=== PATIENT | female | born 1970 | race Caucasian/White ===

== ENCOUNTER 2021-07-27 14:55 | Emergency (ER) | payer MEDICARE, SELFPAY ==
[2021-07-27 14:56] VITALS: BP 115/78; PULSE 79; RESP 18; TEMP 35.9; O2SAT 100; BMI 24.5
[2021-07-27 15:16] VITALS: BP 110/75; PULSE 78; RESP 14; O2SAT 98
--- NOTE | 2021-07-27 15:22 | EKG12_ITS ---
Test Reason : MEDICAL CLEARANCE Blood Pressure : / mmHG Vent. Rate : 070 BPM Atrial Rate : 070 BPM P-R Int : 158 ms QRS Dur : 078 ms QT Int : 418 ms P-R-T Axes : 038 036 047 degrees QTc Int : 451 ms Normal sinus rhythm Normal ECG Confirmed by MICHEL STANFORD, NIGHAT ([id number]), continuity editor NATALYA KELLEY ([id number]) on 07/28/2021 2:02:57 PM Referred By: Confirmed By:SANTIAGO PEARSON MD
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
--- NOTE | 2021-07-27 15:30 | NURSING ---
NO OLD EKGS
[2021-07-27 15:33] LABS: Absolute Lymphocyte Count 0.95 X10^3/uL (0.83-4.51); Absolute Neutrophil Count 4.1 X10^3/uL (2.0-7.7); Basophil# 0.05 X10^3/uL; Basophil% 0.9 % (0-1); Eosinophils% 3.5 % (0-5); Hematocrit 35.1 % (37-47); Lymphocyte # 0.95 X10^3/ul (0.83-4.51); Lymphocyte % 16.5 % (19-41); Mean Corp Hgb Conc 34.2 g/dL (32-36); Mean Corpuscular Hgb 32.6 pg (27.0-32.0); Mean Corpuscular Volume 95.4 fL (81-99); Mean Platelet Vol. 11.5 fl (6.2-12.0); Monocyte# 0.43 X10^3/uL; Monocyte% 7.5 % (0-10); NRBC Flagged by Analyzer 0 % (0-5); Neutrophil # 4.09 X10^3/uL (2.7-7.7); Neutrophil % 71.1 % (47-70); Platelet Count 155 K/mm3 (150-450); RBC Distribution Width CV 11.5 % (11.6-14.6); RBC Distribution Width SD 40.2 fl (35.1-43.9); Red Blood Count 3.68 M/mm3 (4.2-5.4); White Blood Count 5.8 K/mm3 (4.4-11.0)
[2021-07-27 15:49] LABS: ALB/GLOB Ratio 1.3 RATIO (0.9-2.4); AST(SGOT) 42 U/L (15-37); Alanine Aminotransfer ALT/SGPT 75 U/L (13-56); Albumin, Serum 3.8 g/dL (3.2-5.0); Alkaline Phosphatase 101 U/L (45-117); Anion Gap 3 (5-15); BUN 18 mg/dL (7-18); BUN/Creat Ratio 39.9 RATIO (10-20); Calcium,Total 8.6 mg/dL (8.5-10.1); Chloride 104 mmol/L (98-107); Creatinine, Serum 0.45 mg/dL (0.55-1.02); EST Glomerular Filtration Rate 156 mL/min (>60); Est Glom Filt Rate - Afr Amer 189 mL/min (>60); Estimated Creatinine Clearance 130.59 ml/min; Glucose 91 mg/dL (74-106); Protein, Total 6.8 g/dL (6.4-8.2); Sodium Level 138 mmol/L (136-145); Troponin-I HS < 3 pg/mL (3.0-54.0)
--- NOTE | 2021-07-27 15:55 | RAD_ITS ---
STUDY: X-RAY CHEST REASON FOR EXAM: Female, 50 years old. Chest pain TECHNIQUE: PA and lateral views of the chest. COMPARISON: None. FINDINGS: There are monitoring devices. The lungs are clear and expanded. There is no demonstrated pleural abnormality. Normal size heart. Normal mediastinum and rosa. Normal visualized pulmonary arteries. Normal visualized aortic arch and descending thoracic aorta. There is a dextroscoliosis of the thoracic spine. Normal visualized ribs, clavicles, and shoulders. There is no demonstrated abnormality of the visualized soft tissue structures of the upper abdomen. RAD/Chest PA and Lateral IMPRESSION: No focal infiltrate or edema. Scoliosis. Electronically Signed: Christopher Lake MD at 16:21 EST Reading Location ID and State: [facility] / [place] , Service support ,
[2021-07-27 16:40] VITALS: BP 110/78; PULSE 64; RESP 12; TEMP 37.2; O2SAT 99
== END 2021-07-27 16:41 | disposition home or self-care (01) ==
PROVIDERS: Emergency Provider Emergency Medicine; Visit Provider Emergency Medicine
DX: R07.9 Chest pain, unspecified (principal); R00.2 Palpitations; R06.02 Shortness of breath
CPT/HCPCS: 71046; 80053; 84484; 85025; 93005; 99284; A4216

== ENCOUNTER 2023-06-25 11:11 | Emergency (ER) | payer MEDICARE, MEDICAID, SELFPAY ==
[2023-06-25 11:12] VITALS: BP 106/80; PULSE 75; RESP 16; TEMP 36.1; O2SAT 100; BMI 22.8
--- NOTE | 2023-06-25 12:11 | EX.ED.DYSGE1 ---
HPI <PRINCESS Mccurdy - Last Filed: 06/25/23 14:16> History of Present Illness Chief Complaint: Mental Health Narrative Narrative: Patient is a 52-year-old female with according to family has history of schizophrenia, bipolar who is recently moved up here 2 years ago. Patient is brought into the emergency department by her aunt as well as her cousin. Per them, the patient is exhibiting odd behavior that is too much to take care of at home. The patient has auditory and visual hallucinations. The patient cannot be left alone at the house because the patient gets confused, continuously goes through doors and can be aggressive with family. The family provided letters for healthcare personnel to read, it seems that the patient was exhibiting this behavior in [place] and was then sent to live with family here in [place]. Patient has not seen a psychiatrist in multiple years, patient has been admitted to psychiatric facilities twice in her life but this was in [place] and multiple years ago. The family states they can no longer take care of her and is here for evaluation. PFS <PRINCESS Mccurdy - Last Filed: 06/25/23 14:16> [facility] Medical History (Updated 06/25/23 @ 14:16 by PRINCESS Mccurdy) Anemia Bipolar disorder Congenital heart anomaly Depression Schizophrenia Stomach ulcer Home Medications buspirone 10 mg tablet 10 mg PO TID 06/25/23 [History Last Taken Unknown] docusate sodium 100 mg capsule (Colace) 100 mg PO BID 06/25/23 [History Last Taken Unknown] omeprazole 40 mg capsule,delayed release 40 mg PO DAILY 06/25/23 [History Last Taken Unknown] sertraline 100 mg tablet (Zoloft) 100 mg PO DAILY 06/25/23 [History Last Taken Unknown] Allergy/AdvReac Type Severity Reaction Status Date / Time Unable to Assess Allergy Verified 06/25/23 11:14 Social History Smoking Status: Never smoker ROS <PRINCESS Mccurdy - Last Filed: 06/25/23 14:16> ROS ED ROS Narrative Constitutional: Negative for fever, chills, weight loss, weakness Eyes: Negative for vision loss, vision change, double vision ENT: Negative for any sore throat, ear pain, congestion Cardiovascular: Negative for any chest pain, tightness, palpitations Respiratory: Negative for any cough, sputum production, hemoptysis, dyspnea, dyspnea on exertion, orthopnea Gastrointestinal: Negative for any abdominal pain, vomiting, diarrhea, constipation, blood in stool, blood in vomit. Positive for nausea : Negative for any urinary frequency, dysuria, retention, blood in urine Muscle skeletal: Negative for any myalgias, arthralgias, neck pain, back pain Neurological: Negative for any headache, syncope, paresthesias, dizziness Skin: Negative for any rashes, lumps, itching, abrasions, lacerations Psychiatric: Negative for any depression, anxiety, stress, suicidal ideation, homicidal ideation Hematologic: Negative for any easy bruising, excessive bruising, easy bleeding Allergies: Negative for any eczema, hives, rash Patient is a poor informant EXAM <PRINCESS Mccurdy - Last Filed: 06/25/23 14:16> Physical Exam Narrative Exam Narrative: Vital signs reviewed. Patient was alert and oriented however is not a good informant. Patient does state things that are not appropriate. HEET: Head normocephalic atraumatic, TMs clear bilaterally. Posterior pharynx is clear, moist mucous membranes. Nares clear bilaterally. Neck: Supple with no lymphadenopathy or tenderness. No signs of meningismus. Cardiac: Regular rate and rhythm no murmurs gallops or rubs, equal peripheral pulses bilaterally. Respiratory: Lungs clear to auscultation bilaterally. No chest tenderness. Abdomen: Soft, nontender, nondistended. No abdominal bruit or pulsatile masses. No hepatosplenomegaly Extremities: No peripheral edema, no signs of gross trauma or deformity. Active full range of motion of all extremities. Neuro: Cranial nerves II through XII intact, no focal neurological deficits. Skin: Clean dry and intact with no rash, purpura, petechiae, vesicles or pustules. Backs/flank: No CVA tenderness, no midline spinal tenderness, no deformity. Psych: Normal mood and affect. No SI, HI or acute psychosis. Const Vital Signs: 06/25/23 11:12 Temperature 97.0 F L Temperature Source Temporal Pulse Rate 75 Respiratory Rate 16 Blood Pressure 106/80 Blood Pressure Mean 88 Pulse Ox 100 Oxygen Delivery Method Room Air Positive unkempt General Appearance ED: unkempt Psych Appearance: unkempt <Dr. Gigi Newby, DO - Last Filed: 06/25/23 14:48> Physical Exam Const Vital Signs: 06/25/23 11:12 Temperature 97.0 F L Temperature Source Temporal Pulse Rate 75 Respiratory Rate 16 Blood Pressure 106/80 Blood Pressure Mean 88 Pulse Ox 100 Oxygen Delivery Method Room Air MDM <Parrish Wallace REFERENCE ARCHIVIST-C - Last Filed: 06/25/23 14:16> [facility] Lab Data Labs: Laboratory Results - last 24 hr 06/25/23 06/25/23 12:28 12:35 WBC 4.0 L RBC 4.02 L Hgb 12.3 Hct 37.6 MCV 93.5 MCH 30.6 MCHC 32.7 RDW Std Deviation 39.5 RDW Coeff of [place] 11.7 Plt Count 146 L MPV 10.8 Immature Gran % (Auto) 0.300 Neut % (Auto) 73.1 H Lymph % (Auto) 17.2 L [place] % (Auto) 6.3 Eos % (Auto) 1.8 Baso % (Auto) 1.3 H Absolute Neuts (auto) 2.9 Absolute Lymphs (auto) 0.68 L Nucleated RBC % 0 Sodium 139 Potassium 4.3 Chloride 107 Carbon Dioxide 29.0 Anion Gap 3 L BUN 15 Creatinine 0.59 Estim Creat Clear Calc 97.41 Est GFR (MDRD) Af Amer 137 Est GFR (MDRD) Non-Af 113 BUN/Creatinine Ratio 25.3 H Glucose 109 H Calcium 10.0 Serum , Qual NEGATIVE Urine Opiates Screen NEGATIVE Urine Methadone Screen NEGATIVE Ur Barbiturates Screen NEGATIVE Ur Phencyclidine Scrn NEGATIVE Ur Amphetamines Screen NEGATIVE MDMA (Ecstasy) Screen NEGATIVE U Benzodiazepines Scrn NEGATIVE Urine Cocaine Screen NEGATIVE U Cannabinoids Screen NEGATIVE Ur Drug Screen Comment Ethyl Alcohol < 3.0 Treatment and Re-Evaluation :: Patient appears to be in no obvious respiratory distress, vital signs are stable. Presenting to the emergency department for mental health evaluation by her family. Differential diagnosis includes psychosis, schizophrenia, bipolar. After talking with the patient, there is some developmental delay, there is also some underlying psychiatric disease such as system for any of bipolar. I do believe the patient is unable to take care of herself, and I read multiple letters from the family, they are having difficulty taking care of her. I spoke with the social service liaison here in the emergency department. We are in agreement that the patient needs placed for further psychiatric care as well as medication regimen. Patient is not suicidal homicidal at this time, patient does have visual and auditory hallucinations. Patient is stable, mental health workup will be completed in the emergency department. I did read the letters written by the family members, I spoke with the social work here at the hospital in the ER, we are all in agreement that the patient does need placed for further psychiatric care. Patient will receive the laboratory values needed for transfer. Patient will be pink slipped. Patient's CBC was unremarkable patient's chemistries were unremarkable, urine drug screen was negative, alcohol was negative. At this time, patient will need placement. Musella slip was completed. Patient will be transferred to [facility], patient will be transported via ambulance. At this time, I do believe this is the correct course of action. Family is happy with the plan of care, patient is agreeable. <Dr. Gigi Newby, DO - Last Filed: 06/25/23 14:48> [facility] Narrative Medical decision making narrative: I have personally performed a face to face assessment of the patient and have reviewed the DERRICK Note. I performed a substantive portion of the visit including all aspects of the following. My bell findings include: History: Patient presents with abnormal behavior that has been getting worse over the past few days. Patient has been having some racing thoughts per family. Patient states she feels like her heart is racing. Patient admits to some nausea and vomiting. Patient admits to some abdominal pain. Family states that the patient is having difficulty caring for herself. Exam: Vital signs are stable. Patient is afebrile. Patient is in no acute distress. Oral mucosa is pink and moist. Neck is supple. Trachea is midline. There is no JVD. Heart was regular rate and rhythm. Lungs are clear and equal bilateral. Abdomen is soft. Bowel sounds are normal. There is no tenderness. Cranial nerves II through XII are intact. There are no focal motor or sensory deficits noted. Patient denies any suicidal or homicidal ideations. Patient does have a flat affect and appears to be somewhat withdrawn. Medical Decision Making: Medical screening labs will be obtained. CBC will be obtained to assess for leukocytosis and anemia. Basic metabolic profile will be obtained to assess for electrolyte abnormality and renal function. Urine tox screen will be obtained to assess for substance abuse. Serum alcohol level will be obtained to assess for alcohol intoxication. Serum hCG will be obtained to assess for . CBC was reviewed and was within normal limits. Basic metabolic profile was reviewed and was essentially within normal limits. Urine tox screen was reviewed and was negative. Serum alcohol level was reviewed and was less than 3.0. Serum hCG was reviewed and was negative. Patient is medically cleared for evaluation by social service liaison for mental health. Patient will need to be placed in a psychiatric facility. Patient was accepted by [facility]. Patient will be transferred there. Patient understood and was agreeable with the plan. All questions were answered. Lab Data Labs: Laboratory Results - last 24 hr 06/25/23 06/25/23 12:28 12:35 WBC 4.0 L RBC 4.02 L Hgb 12.3 Hct 37.6 MCV 93.5 MCH 30.6 MCHC 32.7 RDW Std Deviation 39.5 RDW Coeff of [place] 11.7 Plt Count 146 L MPV 10.8 Immature Gran % (Auto) 0.300 Neut % (Auto) 73.1 H Lymph % (Auto) 17.2 L [place] % (Auto) 6.3 Eos % (Auto) 1.8 Baso % (Auto) 1.3 H Absolute Neuts (auto) 2.9 Absolute Lymphs (auto) 0.68 L Nucleated RBC % 0 Sodium 139 Potassium 4.3 Chloride 107 Carbon Dioxide 29.0 Anion Gap 3 L BUN 15 Creatinine 0.59 Estim Creat Clear Calc 97.41 Est GFR (MDRD) Af Amer 137 Est GFR (MDRD) Non-Af 113 BUN/Creatinine Ratio 25.3 H Glucose 109 H Calcium 10.0 Serum , Qual NEGATIVE Urine Opiates Screen NEGATIVE Urine Methadone Screen NEGATIVE Ur Barbiturates Screen NEGATIVE Ur Phencyclidine Scrn NEGATIVE Ur Amphetamines Screen NEGATIVE MDMA (Ecstasy) Screen NEGATIVE U Benzodiazepines Scrn NEGATIVE Urine Cocaine Screen NEGATIVE U Cannabinoids Screen NEGATIVE Ur Drug Screen Comment Ethyl Alcohol < 3.0 Discharge Plan Triage Chief Complaint: Mental Health ED Midlevel Provider: Parrish Wallace ED Provider: Gigi Newby Dx/Rx/DC Orders Clinical Impression: Schizophrenia, Auditory hallucination Prescriptions: No Action sertraline [Zoloft] 100 mg tablet 100 mg PO DAILY omeprazole 40 mg capsule,delayed release(DR/EC) 40 mg PO DAILY buspirone 10 mg tablet 10 mg PO TID docusate sodium [Colace] 100 mg capsule 100 mg PO BID Primary Care Provider: Tamara Hayward Referrals: Care Physician,No Primary [Non-Staff] - Disposition Disposition: Psychiatric Hospital or Unit Discharge Location: [facility]
[2023-06-25 12:44] LABS: Absolute Lymphocyte Count 0.68 X10^3/uL (0.83-4.51); Absolute Neutrophil Count 2.9 X10^3/uL (2.0-7.7); Basophil# 0.05 X10^3/uL; Basophil% 1.3 % (0-1); Eosinophil# 0.07 X10^3/uL; Eosinophils% 1.8 % (0-5); Hematocrit 37.6 % (37-47); Hemoglobin 12.3 g/dL (12.0-15.0); Lymphocyte # 0.68 X10^3/ul (0.83-4.51); Lymphocyte % 17.2 % (19-41); Mean Corp Hgb Conc 32.7 g/dL (32-36); Mean Corpuscular Hgb 30.6 pg (27.0-32.0); Mean Corpuscular Volume 93.5 fL (81-99); Mean Platelet Vol. 10.8 fl (6.2-12.0); Monocyte# 0.25 X10^3/uL; Monocyte% 6.3 % (0-10); NRBC Flagged by Analyzer 0 % (0-5); Neutrophil % 73.1 % (47-70); Platelet Count 146 K/mm3 (150-450); RBC Distribution Width CV 11.7 % (11.6-14.6); RBC Distribution Width SD 39.5 fl (35.1-43.9); Red Blood Count 4.02 M/mm3 (4.2-5.4)
[2023-06-25 12:52] LABS: Amphetamine Urine VISTA NEGATIVE (<1000 ng/mL); Barbiturate Urine VISTA NEGATIVE (< 200 ng/mL); Benzodiazepine Urine VISTA NEGATIVE (< 200 ng/mL); Cocaine Urine VISTA NEGATIVE (< 300 ng/mL); Ecstacy Urine VISTA NEGATIVE (< 500 ng/mL); Methadone Urine VISTA NEGATIVE (< 300 ng/mL); PCP Urine VISTA NEGATIVE (< 25 ng/mL); THC Urine VISTA NEGATIVE (< 50 ng/mL); Vista UDS pH Range 6
[2023-06-25 12:54] LABS: Anion Gap 3 (5-15); BUN 15 mg/dL (7-18); BUN/Creat Ratio 25.3 RATIO (10-20); Chloride 107 mmol/L (98-107); Creatinine, Serum 0.59 mg/dL (0.55-1.02); EST Glomerular Filtration Rate 113 mL/min (>60); Est Glom Filt Rate - Afr Amer 137 mL/min (>60); Estimated Creatinine Clearance 97.41 ml/min; Glucose 109 mg/dL (74-106); Potassium 4.3 mmol/L (3.5-5.1); Sodium Level 139 mmol/L (136-145)
--- OUTSIDE RECORDS SUMMARY | 2023-06-25 12:54 | XMS RPT_ITS | CCD ---
Author Name Unknown Address [address] [place] [id number] Organization [facility] Care Team Providers Care Last Model Maker Name Role Phone Pcp, No Primary Care Provider UnavailByron Saravia MD Primary Care Provider Byron Hayward MD Primary Care Provider Byron Hayward MD Primary Care Provider HOLLY LABOY Attending Unavailable BYRON HAYWARD Primary Care Unavailable HOLLY LABOY Referring Unavailable SHEILA RAMEY Attending Unavailable BYRON HAYWARD Primary Care Unavailable HOLLY LABOY Referring Unavailable NATALYA DESAI Attending Unavailable BYRON HAYWARD Primary Care Unavailable JESUS LABOYI Referring Unavailable BYRON HAYWADR Primary Care Unavailable HOLLY LABOY Referring Unavailable BYRON HAYWARD Primary Care Unavailable Medications Current Medications Medication Drug Class(es) Dates Sig (Normalized) Sig (Original) polyethylene glycol 3350 [id number] mg / potassium chloride 2970 mg / sodium bicarbonate 6740 mg / sodium chloride 5860 mg / sodium sulfate 53129 mg powder for oral solution (1 source) Osmotic Laxative Start: 01-05-2022 End: 01-05-2022 peg 3350-Electrolytes (GOLYTELY) 236-22.74-6.74 -5.86 gram suspension Indications: Gastroesophageal reflux disease, unspecified whether esophagitis present Take 4,000 mL by mouth one time only for 1 dose. Refer to printed prep instructions from your provider. 4000 mL 0 01/05/2022 01/05/2022 Active Completed/Discontinued Medications Medication Drug Class(es) Dates Sig (Normalized) Sig (Original) busPIRone hydrochloride 10 mg oral tablet (14 sources) Start: 12-12-2021 take 1 tablet by mouth three times daily busPIRone (BUSPAR) 10 mg tablet Take 1 tablet by mouth three times daily. 90 tablet 5 12/12/2021 Active Problems Active Problems Problem Classification Problem Date Documented Da te Episodic/Chronic Cardiac and circulatory congenital anomalies (13 sources) Congenital heart disease; Translations: [Congenital malformation of heart, unspecified] Onset: 2 09-19-2021 Chronic Deficiency and other anemia (12 sources) Pancytopenia; Translations: [Other pancytopenia] Onset: 2 09-19-2021 Chronic Deficiency and other anemia (1 source) Iron deficiency anemia; Translations: [Iron deficiency anemia, unspecified] Episodic Esophageal disorders (16 sources) Gastroesophageal reflux disease without esophagitis; Translations: [Gastro-esophageal reflux disease without esophagitis] Onset: 2 09-19-2021 Chronic Immunizations and screening for infectious disease (2 sources) Encounter for immunization; Translations: [Encounter for immunization] Onset: 3 Episodic Mood disorders (20 sources) Depressive disorder; Translations: [Depression] Onset: 2 09-19-2021 Chronic Mood disorders (1 source) Mood disorders; Translations: [Depression, unspecified depression type] Onset: 2 Other aftercare (5 sources) Patient encounter status; Translations: [Other equipment operator intermodal yard (current) drug therapy] Episodic Other congenital anomalies (1 source) Congenital malformation, unspecified; Translations: [Congenital malformation, unspecified] Onset: 3 Chronic Other gastrointestinal disorders (1 source) Dysphagia, unspecified; Translations: [Dysphagia, unspecified type] Onset: 4 Episodic Other gastrointestinal disorders (1 source) Constipation, unspecified; Translations: [Constipation, unspecified constipation type] Onset: 4 Episodic Other non-traumatic joint disorders (1 source) Pain in right knee; Translations: [Pain in joint, lower leg] Episodic Other screening for suspected conditions (not mental disorders or infectious disease) (4 sources) Encounter for screening for diabetes mellitus; Translations: [Abnormal finding of blood chemistry, unspecified] Onset: 3 Episodic Schizophrenia and other psychotic disorders (14 sources) Schizophrenia; Translations: [Schizophrenia, unspecified] Onset: 2 09-19-2021 Chronic Past or Other Problems Problem Classification Problem Date Documented Da te Episodic/Chronic Other skin disorders (12 sources) Eruption; Translations: [Rash and other nonspecific skin eruption] Onset: 09-15-2021 09-19-2021 Episodic Viral infection (13 sources) Varicella; Translations: [Varicella without complication] Onset: 09-17-2021 09-19-2021 Episodic Results Test Name Value Interpretation Reference Range Facil ity Vital Signs Date Time Vital Sign Value Performing Clinician Joel castro 01-05-2022 14:02-0400 Body height 162.6 cm Nitesh Rush MD Work Phone: [facility] 01-05-2022 14:02-0400 Body temperature 97.9 [degF] Nitesh Rush MD Work Phone: [facility] 01-05-2022 14:02-0400 Body weight 61.69 kg Nitesh Rush MD Work Phone: [facility] 01-05-2022 14:02-0400 Diastolic blood pressure 67 mm[Hg] Nitesh Rush MD Work Phone: [facility] 01-05-2022 14:02-0400 Heart rate 85 /min Nitesh Rush MD Work Phone: [facility] 01-05-2022 14:02-0400 SaO2% (BldA) [Mass fraction] 98 % Nitesh Rush MD Work Phone: [facility] 01-05-2022 14:02-0400 Systolic blood pressure 102 mm[Hg] Nitesh Rush MD Work Phone: [facility] 12-12-2021 15:12-0400 Body weight 61.24 kg Holly Laboy TEMPORARY ADMINISTRATIVE ASSISTANT.SMALL EQUIPMENT OPERATOR Work Phone: [facility] 12-12-2021 15:12-0400 Diastolic blood pressure 68 mm[Hg] Holly Laboy TEMPORARY ADMINISTRATIVE ASSISTANT.SMALL EQUIPMENT OPERATOR Work Phone: [facility] 12-12-2021 15:12-0400 Heart rate 66 /min Holly Laboy TEMPORARY ADMINISTRATIVE ASSISTANT.SMALL EQUIPMENT OPERATOR Work Phone: [facility] 12-12-2021 15:12-0400 Respiratory rate 16 /min [facility] TEMPORARY ADMINISTRATIVE ASSISTANT.SMALL EQUIPMENT OPERATOR Work Phone: [facility] 12-12-2021 15:12-0400 SaO2% (BldA) [Mass fraction] 99 % Holly Laboy TEMPORARY ADMINISTRATIVE ASSISTANT.SMALL EQUIPMENT OPERATOR Work Phone: [facility] 12-12-2021 15:12-0400 Systolic blood pressure 110 mm[Hg] Holly Aguirres TEMPORARY ADMINISTRATIVE ASSISTANT.SMALL EQUIPMENT OPERATOR Work Phone: [facility] 09-27-2021 14:44-0400 Body weight 62.14 kg Byron Hayward MD Work Phone: [facility] 09-27-2021 14:44-0400 Diastolic blood pressure 78 mm[Hg] Byron Hayward MD Work Phone: [facility] 09-27-2021 14:44-0400 Heart rate 78 /min Byron Hayward MD Work Phone: [facility] 09-27-2021 14:44-0400 Systolic blood pressure 116 mm[Hg] Byron Hayward MD Work Phone: [facility] Encounters Encounter Date Encounter Type Care Provider Facility Start: 06-15-2023 End: 06-15-2023 [facility] Facility:[facility] Start: 06-12-2023 End: 06-13-2023 [facility] Facility:[facility] Start: 05-04-2023 End: 05-04-2023 ambulatory [facility] Facility:[facility] Start: 04-27-2023 End: 04-28-2023 ambulatory [facility] Facility:[facility] Start: 04-27-2023 End: 04-27-2023 ambulatory [facility] Facility:[facility] Start: 11-08-2022 ambulatory Byron quinn MD Work Phone: [facility] [place] Start: 01-19-2022 Telephone encounter Byron daley MD Work Phone: [facility] [place] Plan of Treatment Date Care Activity Detail Author Start: 12-12-2026 LIPID SCREEN LIPID SCREEN [facility] Start: 12-12-2024 DIABETES SCREEN DIABETES SCREEN [facility] Start: 09-19-2024 DIABETES SCREEN DIABETES SCREEN [facility] Start: 01-26-2023 Influenza vaccination INFLUENZ A (Season Ended) [facility] Start: 01-26-2022 Influenza vaccination [facility] Start: 12-12-2021 End: 02-11-2022 Lipid 1996 panel - Serum or Plasma [facility] Work Phone: Payers Date Payer Category Payer Private Health Insurance [employer]i ESCOTOA MEDICARE SUPPLEMENT [id number] 2021-Present [phone] [address] [place] [address] Indemnity [id number] 2021 Private Health Insurance [employer]SE ESCOTOA MEDICARE SUPPLEMENT [id number] 2021-Present [phone] [address] [place] [address] Indemnity [id number] 2017 Medicaid MEDICAID [facility] MEDICAID [id number] 2017-Present [phone] [address] [place] [address] Medicaid [id number] 2017 Medicaid [id number] 1991 Medicare MEDICARE MEDICAR E A AND B [id number] 1991-Present [phone] [place] [address] Medicare [id number] 1991 Medicare MEDICARE MEDICAR E A AND B [id number] 1991-Present [phone] [place] [address] Medicare [id number] 1991 Medicare [id number] Social History Date Type Detail Facility Start: [facility]27-[facility]21 [facility] Start: 07-27-2021 Tobacco use and exposure Smokeless tobacco non-user [facility] Start: 1970 Sex Assigned At Not on file [facility] Start: 09-10-2021 End: 09-20-2021 Exposure to SARS-CoV-2 (event) Unable to assess [facility] Work Phone: Start: 1970 Sex Assigned At Female [facility] Start: 09-17-2021 End: 01-05-2022 Exposure to SARS-CoV-2 (event) Not sure [facility] Start: 10-27-2021 End: 01-05-2022 Alcohol intake Lifetime non-drinker (finding) [facility] Start: 10-27-2021 History SDOH Alcohol Frequency 1 [facility] Clinical Notes 09-17-2021 to 06-15-2023 Telephone Encounter - Holly Laboy APRN.CNS - 01/20/2022 12:18 PM EDTTelephone Encounter - GERRY Sexton - 01/20/2022 8:28 AM Harriett Rush MD - 01/05/2022 5:02 PM EDT Note Date & Type Note Facility 06-15-2023 Note HNO ID: [id number] Author: SHEILA RAMEY APRN.FIELD SERVICES ANALYST Service: ? Author Type: Nurse Practitioner Type: Progress Notes Filed: 06/15/2023 15:25 Note Text: Button Maker And Installer offered: Patient declines. Mony Li MA present for exam Becky is a 52 year old No obstetric history on file. who presents for an annual gynecologic exam without complaints. Postmenopausal: Yes since age 51 HRT use: No. Last Pap: normal HPV: N/A History of abnormal pap: No Last mammogram: never History of abnormal mammogram: No Sexually active: Yes OB History No obstetric history on file. Machine Heel Sprayer History LMP: Postmenopausal Age at Menarche: Age at First : Age at Menopause: Machine Heel Sprayer History Comments: Sexual Activity: Never; No partner data on record Contraception: No contraception data on record PAST MEDICAL HISTORY Diagnosis Date Bipolar disorder (HCC) Chicken pox Congestive heart disease (HCC) Developmental delay Dysphagia GERD (gastroesophageal reflux disease) Major depressive disorder Pancytopenia (HCC) Schizophrenia (HCC) Varicella w/o complication PAST SURGICAL HISTORY Procedure Laterality Date IANDD ABSC SMPL OR SGL NONE FAMILY HISTORY Problem Relation Age of Onset Developmental Delay Mother SOCIAL HISTORY Social History Tobacco Use Smoking status: Never Smokeless tobacco: Never Vaping Use Vaping Use: Never used Substance Use Topics Alcohol use: Never Drug use: Never REVIEW OF SYSTEMS Abdomen: No abdominal pain, nausea, vomiting, diarrhea, or constipation. No bloating, early satiety, indigestion, or increased flatulence. Bladder: No dysuria, gross hematuria, urinary frequency, urinary urgency, or incontinence Breast: No breast lumps, nipple d/c, overlying skin changes, redness or skin retraction Allergies and current medication updated:Yes EXAM: There were no vitals taken for this visit. GENERAL: pleasant, female in no apparent distress HEENT: Normocephalic, atraumatic, mucus membranes moist, and no lesions NECK: Supple, full range of motion, no adenopathy, and thyroid normal DERMATOLOGY: Normal, without lesions, non-icteric, and non-hirsute BREAST: soft, non-tender, symmetric, no dominant mass, normal nipple-areolar complex, no lymphadenopathy, and no nipple discharge CHEST: Normal inspiratory effort ABDOMEN: soft, non-tender, and no masses PELVIC: external genitalia normal, normal Bartholin's glands, urethra, Mesilla's glands, no vulvar lesions, no cervical lesions, good vaginal support, physiologic discharge present, normal appearing perineal body and perianal region BIMANUAL: uterus normal size, shape and consistency, no adnexal masses, and non-tender RECTOVAGINAL: deferred. NEURO: alert and oriented x3,exam grossly non-focal EXTREMITIES: normal ASSESSMENT/PLAN: 1) Health maintenance: Pap done with reflex HPV Nutrition, exercise and routine health maintenance exams reviewed. Calcium/Vitamin D supplementation information provided. 2) Follow up one year or sooner as needed Pt refused mammogram Sheila Ramey APRN.[facility] 06-12-2023 Note HNO ID: [id number] Author: NATALYA DESAI PA-C Service: ? Author Type: Physician Renewable Energy Consultant Type: Progress Notes Filed: 06/18/2023 14:09 Note Text: HISTORY AND PHYSICAL Becky Regalado 1970 REFERRING PHYSICIAN: Holly Laboy APRN.SMALL EQUIPMENT OPERATOR CHIEF COMPLAINT: Consult (Screening for colon cancer/ dysphagia) HPI: The patient is a 52 year old female referred for endoscopy. Becky notes no colon complaints currently, although referral does mention some episodes of constipation. Patient denies any change in bowel habits, weight changes, blood in stools, black tarry stools or abdominal pain. Denies family history of colon issues. The patient reports issues of choking and stomach pain, coughing and occasional episodes of emesis. Becky has not undergone prior endoscopy. Was seen previously by Dr. Rush to discuss endoscopy for similar symptoms at that time, but did not have procedures completed. Patient's medical history is significant for schizophrenia, bipolar disorder. Patient denies chest pain or shortness of breath. Denies problems with sedation in the past. PAST MEDICAL HISTORY Diagnosis Date Bipolar disorder (HCC) Chicken pox Congestive heart disease (HCC) Developmental delay Dysphagia GERD (gastroesophageal reflux disease) Major depressive disorder Pancytopenia (HCC) Schizophrenia (HCC) Varicella w/o complication PAST SURGICAL HISTORY Procedure Laterality Date IANDD ABSC SMPL OR SGL NONE Current Outpatient Medications Medication Sig busPIRone (BUSPAR) 10 mg tablet Take 1 tablet by mouth three times a day. omeprazole (PRILOSEC) 40 mg capsule Take 1 capsule by mouth once daily. naproxen (NAPROSYN) 500 mg tablet Take 1 tablet by mouth at bedtime as needed for pain (for pain/inflammation). Take with food. sertraline (ZOLOFT) 25 mg tablet Take one daily for two weeks, then two daily for two weeks. Then take 100 mg daily docusate sodium (COLACE) 100 mg capsule Take 1 capsule by mouth two times a day as needed for constipation. sertraline (ZOLOFT) 100 mg tablet Take 1 tablet by mouth once daily. valACYclovir (VALTREX) 1 gram Take 1,000 mg by mouth three times daily. melatonin 5 mg tablet Take 1 tablet by mouth daily at bedtime. ferrous sulfate 325 mg (65 mg iron) tablet Take 1 tablet by mouth every other day. diphenhydrAMINE (BENADRYL) 50 mg capsule Take 1 capsule by mouth every 6 hours as needed for itching/rash. No current facility-administered medications for this visit. ALLERGIES: Patient has no known allergies. PERSONAL HISTORY: Social History Tobacco Use Smoking status: Never Smokeless tobacco: Never Vaping Use Vaping Use: Never used Substance Use Topics Alcohol use: Never Drug use: Never FAMILY HISTORY: FAMILY HISTORY Problem Relation Age of Onset Developmental Delay Mother REVIEW OF SYMPTOMS: The review of systems data was entered by the nurse and reviewed by me Nursing Notes: Maggie Munoz LPN 06/12/2023 3:53 PM Signed REVIEW OF SYSTEMS: General: The patient denies fatigue, denies weight loss, denies weight gain, denies feeling hot, and denies feelings of cold. Eyes: The patient denies glaucoma, denies eye injury/surgery, wears glasses or contacts. Ear/Nose/Throat: The patient denies allergies, denies hayfever, denies ear infections, and denies bloody noses. Cardiovascular: The patient denies chest pain, NOTES heart disease, denies high blood pressure,denies cardiac stent, denies prior heart attack, denies irregular heart beat, denies high cholesterol, denies poor circulation, denies heart failure, other cardiac issues, denies claudication, denies cold feet, denies peripheral arterial stent. Respiratory: The patient denies tuberculosis, denies pneumonia, denies frequent cough, denies pulmonary embolism, denies shortness of breath, and denies coughing up blood. Gastrointestinal: The patient denies difficulty swallowing, NOTES acid reflux, denies ulcers, denies vomiting, denies jaundice/hepatitis, denies gallbladder problems, denies black or tarry stools, denies hemorrhoids, denies bleeding from rectum, denies diverticulitis, NOTES constipation, denies diarrhea, denies loss of stool control, and denies hernias. Kidney/Bladder: The patient denies kidney stones, denies urine infections, and denies bloody urine. Skin: The patient denies a history of skin cancer, denies bleeding/changing moles, and denies a history of skin rash. Neurologic: The patient denies a history of epilepsy/convulsions, denies headaches, denies head/spinal injuries, and denies stroke/TIA. Psychiatric: The patient NOTES psychiatric medications, NOTES depression, and NOTES voices, denies substance abuse. Endocrine: The patient denies thyroid disorders, denies diabetes, and denies hormonal problems. Hematologic: The patient denies a history of bruising, denies bleeding, and denies anemia, denies blood clots. Infections: The abhijit (more content not included)... [facility] 04-27-2023 Note HNO ID: [id number] Author: Holly Laboy APRN.SMALL EQUIPMENT OPERATOR Service: ? Author Type: Nurse Specialist Type: Progress Notes Filed: 04/27/2023 4:09 PM Note Text: SUBJECTIVE: Hepatitis B Vaccine(1 of 3 - 3-dose series) Never done Covid-19 Vaccine(1) Never done DTaP,Tdap,Td Vaccine(1 - Tdap) Never done Pap Testing Never done HPV Testing Never done Mammogram Screening Never done Colorectal Cancer Screening Never done Shingrix Vaccine(1 of 2) Never done Influenza Vaccine(1) Never done HPI Becky Regalado is a 52 year old female. PMH signficiant for ACTIVE PROBLEM LIST Rash Pancytopenia (Hcc) Gastroesophageal Reflux Disease Without Esophagitis Depression Varicella Without Complication Schizophrenia (Hcc) Bipolar Disorder (Hcc) Congenital Heart Disease Seen by Byron Hayward MD 09/27/2021. Last seen in office November 2021, several no-shows and cancellations. Presents today for routine visit. Presents with her aunt Lita that helps with HPI. HPI excerpted from previous visit: Patient/family provided with mental health resources by behavioral health SW on 09/28/2021. [facility] ER visit 10/27/2021. ER impression / plan excerpted: Patient is a 51-year-old female who presents emergency department for evaluation. She is very calm cooperative here she has no periods of agitation. She does have a some underlying MRDD so she has poor insight on certain topics. She denies being suicidal or homicidal she denies having any auditory visual hallucinations. She does not appear acutely psychotic or manic. I did speak with her aunt and cousin who states that the patient needs placed into a long-term. They state that she is not able to live with her mother. They state that Froylan her social work associate asked for her to come to the hospital. I spoke with Froylan who is a social work associate with [facility]. At this time I discussed with him she does not meet criteria to be pink slipped for admission to the hospital. That we can give the resources for mental health outpatient evaluation. He states that they gave resources to the family but they have not followed through and they have not contacted the MRDD board. They need to contact them to try to get resources in the community and get her plugged into the system and try to get her set up into a long-term. At this time I do not feel the patient meets any criteria for admission to the hospital and she will be discharged with her family. Presents with episode today. Ana was unable to make it to her appointment today. SO indicates that Becky Regalado is not sleeping at night. States JAYCEE has not yet reached out to behavioral health resources provided in September 2021 at . Reports chronic knee pain which keeps her awake at night sometimes. Thinks she may been told she has had arthritis in the past. Has taken Aleve in the past with some relief. Notes GERD symptoms persist, helped somewhat with current dose of omeprazole. No reported nausea vomiting diarrhea constipation BRBPR black or tarry stool. No reported abdominal pain. Today notes she is in her usual state of health. Notes has not taken any of her medications for a few months that she ran out. She notes chronic GERD, feels like food is getting caught in her lower part of throat at times, no particular type of food gets caught. No nausea vomiting abdominal pain BRBPR black or tarry stools is noted. Notes takes iron daily, constipation with this. Not currently using remedy. She notes chronic mid back pain attributed to scoliosis. Unknown if currently seeing behavioral health provider. Not taking Zoloft or BuSpar currently. Has been off for few months. Previously reported congenital heart disease, no known recent echocardiogram for assessment. No recent cardiology visit. Without report of chest pain shortness of breath palpitations or edema. No prior colon cancer screening is known. No prior EGD or other evaluation for dysphagia. No current AN EMPLOYEE SPONSOR OR ADVOCATE AND. Review of Systems Constitutional: Negative. Musculoskeletal: Positive for arthralgias and back pain. Psychiatric/Behavioral: Positive for dysphoric mood. Objective BP 100/68 Pulse 79 Resp 16 Ht 158.8 cm (5' 2.5 ) Wt 62.1 kg (137 lb) BMI 24.66 kg/m? Physical Exam Vitals and nursing note reviewed. Constitutional: Appearance: Normal appearance. HENT: Head: Normocephalic and atraumatic. Eyes: Conjunctiva/sclera: Conjunctivae normal. Neck: Thyroid: No thyromegaly. Vascular: Normal carotid pulses. No JVD. Cardiovascular: Rate and Rhythm: Normal rate and regular rhythm. Pulses: Carotid pulses are 2+ on the right side and 2+ on the left side. Radial pulses are 2+ on the right side and 2+ on the left side. Heart sounds: Normal heart sounds. Pulmonary: Effort: Pulmonary effort is normal. Breath sounds: Normal breath sounds. Abdominal: General: Bowel sounds are normal. Palpations: Abdomen is soft. Mu (more content not included)... [facility] 11-08-2022 Note Patient Outreach (IN [facility]) BECKY REGALADO ([id number]) 1970 F Date Time Provider Department 11/08/22 BYRON HAYWARD During your visit today, we recorded the following information about you: Allergies As of Date: 11/08/2022 (No Known Allergies) Date Reviewed: 01/05/2022 Reviewed by: Nitesh Rush MD - Fully Assessed Visit Diagnosis:Encounter for screening mammogram for breast cancer [Z12.31] Order(s):[facility] SCREENING [[id number]] Order #: [id number] FUTURE Prescriptions as of 11/13/2022 - sertraline (ZOLOFT) 100 mg tablet Take 1 tablet by mouth once daily. - busPIRone (BUSPAR) 10 mg tablet Take 1 tablet by mouth three times daily. - omeprazole (PRILOSEC) 40 mg capsule Take 1 capsule by mouth once daily. - naproxen (NAPROSYN) 500 mg tablet Take 1 tablet by mouth at bedtime as needed for pain (for pain/inflammation). Take with food. - valACYclovir (VALTREX) 1 gram Take 1,000 mg by mouth three times daily. - melatonin 5 mg tablet Take 1 tablet by mouth daily at bedtime. - ferrous sulfate 325 mg (65 mg iron) tablet Take 1 tablet by mouth every other day. - diphenhydrAMINE (BENADRYL) 50 mg capsule Take 1 capsule by mouth every 6 hours as needed for itching/rash. Problem List As Of Date 11/08/2022 Noted Resolved Rash [R21] 09/15/2021 Pancytopenia (HCC) [D61.818] 09/15/2021 Gastroesophageal reflux disease without esophag*09/15/2021 Depression [F32.A] 09/15/2021 Varicella without complication [B01.9] 09/17/2021 Schizophrenia (HCC) [F20.9] 09/17/2021 Bipolar disorder (HCC) [F31.9] 09/17/2021 Congenital heart disease [Q24.9] 09/17/2021 Pyuria [R82.81] 09/17/2021 09/19/2021 Encounter Status:Closed by [employer], PRODUSER on 11/13/22 [facility] 01-20-2022 Miscellaneous Notes noted This Sw agrees that reaching out to patient local Board of DD would be best way to help with patient going to long-term. Patient local [facility] Board of DD would have knowledge of group homes in their area and be able to assist with information on how to help patient set up living services with most appropriate Board of DD for her needs. Patient's guardian, Ana calling to ask how she might go about getting patient admitted to long-term. She states patient is becoming more difficult to manage and having increased behaviors. She has not had any acute episodes of agitation severe enough to take her to ER. Reviewed last OV note which advises guardian to contact local MRDD board for resources. They have moved to [facility]. This nurse was able to give Ana a phone number for [facility]. Advised ER evaluation for any acute episode of documented in this encounter [facility] 01-05-2022 History of Presen t illness Narrative HISTORY AND PHYSICAL Becky Regalado 1970 REFERRING PHYSICIAN: Byron Hayward MD CHIEF COMPLAINT: Consult (GERD, Abdominal Pain, Constipation) HPI: The patient is a 51 year old female referred for endoscopy. Becky notes no current colon complaints. The patient initially denies significant upper GI complaints. She does however note what sounds like some reflux symptoms sometimes nausea and occasionally vomiting. The patient has a history of schizophrenia she also has a history of MRDD. Her family and caregivers feel she is having more significant reflux type issues and feels she needs endoscopy. Becky follows that she had undergone prior endoscopy. The family does not believe this occurred and there is no record of prior endoscopy The patient is being seen by me today at the request of Dr. Byron Hayward MD for my opinion and advice regarding gastroesophageal reflux disease and need for screening colonoscopy. PAST MEDICAL HISTORY Diagnosis Date Developmental delay Major depressive disorder PAST SURGICAL HISTORY Procedure Laterality Date NONE Current Outpatient Medications Medication Sig peg 3350-Electrolytes (GOLYTELY) 236-22.74-6.74 -5.86 gram suspension Take 4,000 mL by mouth one time only for 1 dose. Refer to printed prep instructions from your provider. sertraline (ZOLOFT) 100 mg tablet Take 1 tablet by mouth once daily. busPIRone (BUSPAR) 10 mg tablet Take 1 tablet by mouth three times daily. omeprazole (PRILOSEC) 40 mg capsule Take 1 capsule by mouth once daily. naproxen (NAPROSYN) 500 mg tablet Take 1 tablet by mouth at bedtime as needed for pain (for pain/inflammation). Take with food. valACYclovir (VALTREX) 1 gram Take 1,000 mg by mouth three times daily. melatonin 5 mg tablet Take 1 tablet by mouth daily at bedtime. ferrous sulfate 325 mg (65 mg iron) tablet Take 1 tablet by mouth every other day. (Patient not taking: Reported on 01/05/2022) diphenhydrAMINE (BENADRYL) 50 mg capsule Take 1 capsule by mouth every 6 hours as needed for itching/rash. No current facility-administered medications for this visit. ALLERGIES: Patient has no known allergies. PERSONAL HISTORY: Social History Tobacco Use Smoking status: Never Smokeless tobacco: Never Substance Use Topics Alcohol use: Never Drug use: Never FAMILY HISTORY: FAMILY HISTORY Problem Relation Age of Onset Developmental Delay Mother REVIEW OF SYMPTOMS: The review of systems data was entered by the nurse and reviewed by nm Nursing Notes: Araceli Michel 01/05/2022 2:08 PM Signed REVIEW OF SYSTEMS: General: The patient NOTES fatigue, denies weight loss, denies weight gain, denies feeling hot, and denies feelings of cold. Eyes: The patient denies glaucoma, denies eye injury/surgery, wears glasses or contacts. Ear/Nose/Throat: The patient denies allergies, denies hayfever, denies ear infections, and denies bloody noses. Cardiovascular: The patient denies chest pain, denies heart disease, denies high blood pressure,denies cardiac stent, denies prior heart attack, denies irregular heart beat, denies high cholesterol, NOTES poor circulation, denies heart failure, other cardiac issues,NOTES claudication, denies cold feet, denies peripheral arterial stent. Respiratory: The patient denies tuberculosis, denies pneumonia, denies frequent cough, denies pulmonary embolism, denies shortness of breath, and denies coughing up blood. Gastrointestinal: The patient NOTES difficulty swallowing, NOTES acid reflux, denies ulcers, denies vomiting, denies jaundice/hepatitis, denies gallbladder problems, denies black or tarry stools, denies hemorrhoids, denies bleeding from rectum, denies diverticulitis, NOTES constipation, denies diarrhea, denies loss of stool control, and denies hernias. Kidney/Bladder: The patient denies kidney stones, NOTES urine infections, and denies bloody urine. Skin: The patient denies a history of skin cancer, denies bleeding/changing moles, and NOTES a history of skin rash. Neurologic: The patient denies a history of epilepsy/convulsions, denies headaches, denies head/spinal injuries, and denies stroke/TIA. Psychiatric: The patient NOTES psychiatric medications, NOTES depression, and NOTES voices, denies substance abuse. Endocrine: The patient denies thyroid disorders, denies diabetes, and denies hormonal problems. Hematologic: The patient NOTES a history of bruising, denies bleeding, and NOTES anemia, denies blood clots. Infections: The patient denies a history of measles and mumps, denies rheumatic fever, and denies sexually transmitted diseases. Musculoskeletal: The patient NOTES back pain/injury, denies back problems, denies sciatica, NOTES knee/foot trouble, denies arthritis, or denies gout. When was patient's last Mammogram screening? None Last Colonoscopy: None Araceli Michel PHYSICAL EXAMINATION: General: The patient is 51 year old female, well nourished, well hydrated in no acute distress. The patient is oriented to time, place, and person. VITALS: Blood pressure 102/67, pulse 85, temperature 36.6 C (97.9 F), height 162.6 cm (5' 4 ), weight 61.7 kg (136 lb), SpO2 98 %. Body mass index is 23.34 kg/m . HEENT: Normal cephalic, ataumatic, pupils are equally round, sclera are anicteric, mucous membranes are moist, oropharynx is clear. Neck has no masses, asymmetry or lymphadenopathy. Thyroid is unremarkable. Respiratory: Clear to auscultation and percussion. Normal respiratory excursion and pattern. Cardiac: Examination is regular rate and rhythm. Abdominal exam: Soft, nontender, with no palpable masses. No hepatosplenomegaly. No palpable hernias. Rectal exam: exam deferred Extremities: no clubbing, cyanosis or edema. No adenopathy. Other: LABORATORY VALUES: As Noted RADIOLOGIC STUDIES: As Noted Assessment IMPRESSION: Gastroesophageal reflux disease, need for screening colonoscopy, MRDD, schizophrenia PLAN: I plan to perform upper and lower endoscopy. We discussed the risks and benefits of the planned endoscopy. I have informed the patient that complications can occur including failure to complete the endoscopy and perforation. The patient had the opportunity to ask questions concerning the planned endoscopy. My staff has also explained the procedure to the patient in understandable terms and has given the patient printed material concerning the procedure. The patient freely consents to surgery. I plan to use golytely bowel preparation for endoscopy I plan for monitored anesthetic care. Diagnoses: (Z12.11) Special screening for malignant neoplasm of colon (primary encounter diagnosis) (K21.9) Gastroesophageal reflux disease, unspecified whether esophagitis present My findings have been communicated to Dr. Byron Hayward MD via shared medical record. This note will be forwarded to Dr. Byron Hayward MD. Return to Clinic: The patient is instructed to follow-up with me after the testing has been completed. Nitesh Rush MD documented in this encounter [facility] 01-05-2022 Instructions Nitesh Rush MD - 01/05/2022 3:12 PM EDT Images from the original note were not included. Bowel Preparation Instructions for: Golytely, Nulytely, Trilyte or Colyte (polyethylene glycol 3350 and electrolytes) IF YOU DO NOT FOLLOW THESE DIRECTIONS, YOUR COLONOSCOPY WILL BE CANCELLED. Pratt Instructions: Your bowel must be empty so that your doctor can clearly view your colon. Follow all of the instructions in this handout EXACTLY as they are written. Do NOT eat any solid food the ENTIRE day before your colonoscopy. Drink only clear liquids. Buy your bowel preparation at least 5 days before your colonoscopy. TRANSPORTATION on the Day of Your Exam A responsible person MUST be present with you at Check In prior to your colonoscopy and REMAIN in the endoscopy area until you are discharged. You are NOT ALLOWED to drive, take a taxi or bus, or leave the Endoscopy Center ALONE. If you do not have a responsible service car driver (family member or friend) with you to take you home, your exam cannot be done with sedation and will be cancelled. Please bring a list of all of your current medications, including any Over-the Counter medications with you. Medications If you take insulin, diabetic medications or blood thinners such as Coumadin (warfarin), Plavix (clopidogrel), Ticlid (ticlopidine hydrochloride), Agrylin (anagrelide), Xarelto (Rivaroxaban), Pradaxa (Dabigatran), Eliquis (Apixaban), and Effient (Prasugrel). You MUST call the doctors who orders those medicines for instructions on altering the dosage before your colonoscopy. All other medications should be taken the day of the exam with a sip of water including ASPIRIN. Five (5) Days Before Your Colonoscopy Do NOT take medicines that stop diarrhea - such as Imodium, Kaopectate, or Pepto Bismol. Do NOT take fiber supplements - such as Metamucil, Citrucel, or Perdiem. Do NOT take products that contain iron - such as multi-vitamins (the label lists what is in the products). Do NOT take Vitamin E. Buy the prescription bowel preparation solution at your local pharmacy or [facility]. 1 04/2019 Bowel Preparation Instructions for: Golytely, Nulytely, Trilyte or Colyte (polyethylene glycol 3350 and electrolytes) Three (3) Days Before Your Colonoscopy Do NOT eat high-fiber foods - such as popcorn, beans, seeds (flax, sunflower, quinoa), multigrain bread, nuts, salad/vegetables, or fresh and dried fruit. One (1) Day Before Your Colonoscopy Only drink clear liquids the ENTIRE DAY before your colonoscopy. Do NOT eat any solid foods. Drink at least 8 ounces of clear liquids every hour after waking up. The clear liquids you can drink include: Clear Liquid (NO RED LIQUIDS) DO NOT DRINK Gatorade, Pedialyte or Powerade Clear broth or bouillon Coffee or tea (no milk or non-dairy creamer) Carbonated and non-carbonated soft drinks Maikel-Aid or other fruit flavored drinks Strained fruit juices (no pulp) Jell-O, popsicles, hard candy Water Alcohol Milk or non-dairy creamers Noodles or vegetables in soup Juice with pulp Liquid you cannot see through Do not use tobacco/vaping products The bowel preparation solution will be consumed in two parts. Mix the solution the evening before your colonoscopy and refrigerate before drinking. You may add the flavor pack that came with the bowel preparation. Do NOT add ice, sugar or any other flavorings to the solution. Part 1 At 6:00 PM - Evening before your colonoscopy Drink an 8-oz glass of bowel preparation every 10 minutes until clear You may continue to drink clear liquids until midnight. 2 04/2019 Bowel Preparation Instructions for: Golytely, Nulytely, Trilyte or Colyte (polyethylene glycol 3350 and electrolytes) IF YOU DO NOT FOLLOW THESE DIRECTIONS, YOUR COLONOSCOPY WILL BE CANCELLED. Pratt Instructions: Your bowel must be empty so that your doctor can clearly view your colon. Follow all of the instructions in this handout EXACTLY as they are written. Do NOT eat any solid food the ENTIRE day before your colonoscopy. Drink only clear liquids. Buy your bowel preparation at least 5 days before your colonoscopy. TRANSPORTATION on the Day of Your Exam A responsible person MUST be present with you at Check In prior to your colonoscopy and REMAIN in the endoscopy area until you are discharged. You are NOT ALLOWED to drive, take a taxi or bus, or leave the Endoscopy Center ALONE. If you do not have a responsible service car driver (family member or friend) with you to take you home, your exam cannot be done with sedation and will be cancelled. Please bring a list of all of your current medications, including any Over-the Counter medications with you. Medications If you take insulin, diabetic medications or blood thinners such as Coumadin (warfarin), Plavix (clopidogrel), Ticlid (ticlopidine hydrochloride), Agrylin (anagrelide), Xarelto (Rivaroxaban), Pradaxa (Dabigatran), Eliquis (Apixaban), and Effient (Prasugrel). You MUST call the doctors who orders those medicines for instructions on altering the dosage before your colonoscopy. All other medications should be taken the day of the exam with a sip of water including ASPIRIN. Five (5) Days Before Your Colonoscopy Do NOT take medicines that stop diarrhea - such as Imodium, Kaopectate, or Pepto Bismol. Do NOT take fiber supplements - such as Metamucil, Citrucel, or Perdiem. Do NOT take products that contain iron - such as multi-vitamins (the label lists what is in the products). Do NOT take Vitamin E. Buy the prescription bowel preparation solution at your local pharmacy or drugstore pharmacy. 04/2019 Bowel Preparation Instructions for: Golytely, Nulytely, Trilyte or Colyte (polyethylene glycol 3350 and electrolytes) Three (3) Days Before Your Colonoscopy Do NOT eat high-fiber foods - such as popcorn, beans, seeds (flax, sunflower, quinoa), multigrain bread, nuts, salad/vegetables, or fresh and dried fruit. One (1) Day Before Your Colonoscopy Only drink clear liquids the ENTIRE DAY before your colonoscopy. Do NOT eat any solid foods. Drink at least 8 ounces of clear liquids every hour after waking up. The clear liquids you can drink include: Clear Liquid (NO RED LIQUIDS) DO NOT DRINK Gatorade, Pedialyte or Powerade Clear broth or bouillon Coffee or tea (no milk or non-dairy creamer) Carbonated and non-carbonated soft drinks Maikel-Aid or other fruit flavored drinks Strained fruit juices (no pulp) Jell-O, popsicles, hard candy Water Alcohol Milk or non-dairy creamers Noodles or vegetables in soup Juice with pulp Liquid you cannot see through Do not use tobacco/vaping products The bowel preparation solution will be consumed in two parts. Mix the solution the evening before your colonoscopy and refrigerate before drinking. You may add the flavor pack that came with the bowel preparation. Do NOT add ice, sugar or any other flavorings to the solution. Part 1 At 6:00 PM - Evening before your colonoscopy Drink an 8-oz glass of bowel preparation every 10 minutes for a total of 8 glasses. You may continue to drink clear liquids until midnight. Part 2 On the day of your colonoscopy you may drink clear liquids up to (three) 3 hours before your procedure. 4 1/2 hours before your colonoscopy Drink an 8-oz glass of bowel preparation every 10 minutes for a total of 8 glasses. Fifteen (15) minutes later, drink an 8-oz glass of clear liquids every 15 minutes for a total of 2 glasses. You may continue to drink clear liquids up to (three) 3 hours before your exam. 2 04/2019 documented in this encounter [facility] 01-05-2022 Nurse Note REVIEW OF SYSTEMS: General: The patient NOTES fatigue, denies weight loss, denies weight gain, denies feeling hot, and denies feelings of cold. Eyes: The patient denies glaucoma, denies eye injury/surgery, wears glasses or contacts. Ear/Nose/Throat: The patient denies allergies, denies hayfever, denies ear infections, and denies bloody noses. Cardiovascular: The patient denies chest pain, denies heart disease, denies high blood pressure,denies cardiac stent, denies prior heart attack, denies irregular heart beat, denies high cholesterol, NOTES poor circulation, denies heart failure, other cardiac issues,NOTES claudication, denies cold feet, denies peripheral arterial stent. Respiratory: The patient denies tuberculosis, denies pneumonia, denies frequent cough, denies pulmonary embolism, denies shortness of breath, and denies coughing up blood. Gastrointestinal: The patient NOTES difficulty swallowing, NOTES acid reflux, denies ulcers, denies vomiting, denies jaundice/hepatitis, denies gallbladder problems, denies black or tarry stools, denies hemorrhoids, denies bleeding from rectum, denies diverticulitis, NOTES constipation, denies diarrhea, denies loss of stool control, and denies hernias. Kidney/Bladder: The patient denies kidney stones, NOTES urine infections, and denies bloody urine. Skin: The patient denies a history of skin cancer, denies bleeding/changing moles, and NOTES a history of skin rash. Neurologic: The patient denies a history of epilepsy/convulsions, denies headaches, denies head/spinal injuries, and denies stroke/TIA. Psychiatric: The patient NOTES psychiatric medications, NOTES depression, and NOTES voices, denies substance abuse. Endocrine: The patient denies thyroid disorders, denies diabetes, and denies hormonal problems. Hematologic: The patient NOTES a history of bruising, denies bleeding, and NOTES anemia, denies blood clots. Infections: The patient denies a history of measles and mumps, denies rheumatic fever, and denies sexually transmitted diseases. Musculoskeletal: The patient NOTES back pain/injury, denies back problems, denies sciatica, NOTES knee/foot trouble, denies arthritis, or denies gout. When was patient's last Mammogram screening? None Last Colonoscopy: None Araceli Michel documented in this encounter [facility] 12-12-2021 Instructions Holly Laboy APRN.[employer]PER[employer] - 12/12/2021 3:48 PM EDT For mood and trouble sleeping make the following changes: Increase Zoloft from 50 mg daily to 100 mg daily Increase BuSpar from 5 mg 3 times a day to 10 mg 3 times a day For reflux symptoms: Increase omeprazole from 20 mg to 40 mg daily Schedule appointment with psychiatry. Please see the attached recommended resources provided by our behavioral social work associate. Let us know if these locations do not work for you now. For knee pain: Take acetaminophen as needed. If needed can take naproxen at bedtime for knee pain documented in this encounter [facility] 12-12-2021 History of Presen t illness Narrative SUBJECTIVE: COVID-19 VACCINE(1) Never done DTAP,TDAP,TD(1 - Tdap) Never done PAP TESTING Never done HPV TESTING Never done MAMMOGRAM Never done LIPID SCREEN Never done COLORECTAL CANCER SCREENING Never done SHINGRIX VACCINE(1 of 2) Never done HPI Becky Regalado is a 51 year old female. PMH signficiant for ACTIVE PROBLEM LIST Rash Pancytopenia (Hcc) Gastroesophageal Reflux Disease Without Esophagitis Depression Varicella Without Complication Schizophrenia (Hcc) Bipolar Disorder (Hcc) Congenital Heart Disease Seen by Byron Hayward MD 09/27/2021. Patient/family provided with mental health resources by behavioral health SW on 09/28/2021. [facility] ER visit 10/27/2021. ER impression / plan excerpted: Patient is a 51-year-old female who presents emergency department for evaluation. She is very calm cooperative here she has no periods of agitation. She does have a some underlying MRDD so she has poor insight on certain topics. She denies being suicidal or homicidal she denies having any auditory visual hallucinations. She does not appear acutely psychotic or manic. I did speak with her aunt and cousin who states that the patient needs placed into a long-term. They state that she is not able to live with her mother. They state that Froylan her social work associate asked for her to come to the hospital. I spoke with Froylan who is a social work associate with [facility]. At this time I discussed with him she does not meet criteria to be pink slipped for admission to the hospital. That we can give the resources for mental health outpatient evaluation. He states that they gave resources to the family but they have not followed through and they have not contacted the MRDD board. They need to contact them to try to get resources in the community and get her plugged into the system and try to get her set up into a long-term. At this time I do not feel the patient meets any criteria for admission to the hospital and she will be discharged with her family. Presents with episode today. Iris was unable to make it to her appointment today. SO indicates that Becky Regalado is not sleeping at night. States JAYCEE has not yet reached out to behavioral health resources provided in September 2021 at . Reports chronic knee pain which keeps her awake at night sometimes. Thinks she may been told she has had arthritis in the past. Has taken Aleve in the past with some relief. Notes GERD symptoms persist, helped somewhat with current dose of omeprazole. No reported nausea vomiting diarrhea constipation BRBPR black or tarry stool. No reported abdominal pain. Review of Systems Constitutional: Negative. Musculoskeletal: Positive for arthralgias. Psychiatric/Behavioral: Positive for sleep disturbance. Objective BP 110/68 Pulse 66 Resp 16 Wt 61.2 kg (135 lb) SpO2 99% BMI 23.17 kg/m Physical Exam Vitals and nursing note reviewed. Constitutional: Appearance: Normal appearance. HENT: Head: Normocephalic and atraumatic. Eyes: Conjunctiva/sclera: Conjunctivae normal. Cardiovascular: Rate and Rhythm: Normal rate and regular rhythm. Heart sounds: Normal heart sounds. Pulmonary: Effort: Pulmonary effort is normal. Breath sounds: Normal breath sounds. Abdominal: General: Bowel sounds are normal. Palpations: Abdomen is soft. Musculoskeletal: Right knee: No swelling, effusion or bony tenderness. Normal range of motion. No tenderness. Left knee: No swelling, effusion or bony tenderness. Normal range of motion. No tenderness. Skin: General: Skin is warm and dry. Neurological: Mental Status: She is alert. Mental status is at baseline. ALLERGIES No Known Allergies Medications valACYclovir (VALTREX) 1 gram Take 1,000 mg by mouth three times daily. sertraline (ZOLOFT) 50 mg tablet Take 1 tablet by mouth once daily. busPIRone (BUSPAR) 5 mg tablet Take 1 tablet by mouth three times daily. melatonin 5 mg tablet Take 1 tablet by mouth daily at bedtime. ferrous sulfate 325 mg (65 mg iron) tablet Take 1 tablet by mouth every other day. omeprazole (PRILOSEC) 20 mg capsule Take 1 capsule by mouth once daily. diphenhydrAMINE (BENADRYL) 50 mg capsule Take 1 capsule by mouth every 6 hours as needed for itching/rash. PAST MEDICAL HISTORY Diagnosis Date Developmental delay Major depressive disorder Social History Tobacco Use Smoking status: Never Smoker Smokeless tobacco: Never Used Substance Use Topics Alcohol use: Never Drug use: Never ASSESSMENT/PLAN: 1. Schizophrenia, unspecified type (HCC) - ICD9: 295.90, ICD10: F20.9 (primary diagnosis) 2. Screening for lipid disorders - ICD9: V77.91, ICD10: Z13.220 - LIPID PANEL BASIC 3. Chronic pain of both knees - ICD9: 719.46, 338.29, ICD10: M25.561, M25.562, G89.29 - XR KNEE GENERAL 4V AP BOTH/PA BOTH/LAT/MERC BILATERAL - NAPROXEN SODIUM 220 MG TABLET 4. Gastroesophageal reflux disease, unspecified whether esophagitis present - ICD9: 530.81, ICD10: K21.9 5. Bipolar affective disorder, currently depressed, moderate (HCC) - ICD9: 296.52, ICD10: F31.32 SO present at visit today does not recall september visit or phone call from behavioral health social work associate which were completed in September. States Becky Regalado has not yet made an appointment with psychiatry or reached out to the resources previously provided. Endorsed doing so. Reprinted information for ease of follow-up. Regarding symptomatic complaints the following adjustments were made: Advised: For mood and trouble sleeping make the following changes: Increase Zoloft from 50 mg daily to 100 mg daily Increase BuSpar from 5 mg 3 times a day to 10 mg 3 times a day For reflux symptoms: Increase omeprazole from 20 mg to 40 mg daily Schedule appointment with psychiatry. Please see the attached recommended resources provided by our behavioral social work associate. Let us know if these locations do not work for you now. For knee pain: Take acetaminophen as needed. If needed can take naproxen at bedtime for knee pain 1-2 mo follow up Ms. 6 mo follow up MD Holly Cronin APRN.SMALL EQUIPMENT OPERATOR Medical Decision Making: Problems: Moderate: 2+ stable chronic illnesses and 1+ chronic illnesses with change Risk: Moderate: Drug management Medical Decision Making Level: 4 - Moderate documented in this encounter [facility] 09-28-2021 Miscellaneous Notes BEHAVIORAL HEALTH SOCIAL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 Socorro joaquin Referred To Contact General Surgery Diagnoses Gastroesophageal reflux disease, unspecified whether esophagitis present Procedures CONSULT TO GENERAL SURGERY OFFICE/OUTPATIENT [facility] 60-74 MINUTES Byron Hayward MD [address] [place] [address] Nitesh Rush MD [address] [place] [address] Referral ID Status Reason Start Date Expiration Date V isits Requested Visits Authorized [id number] Closed PCP Requested Referral 09/27/2021 09/27/2022 1 1 Reason Comments Patient Question Care Teams (unrecognized sec tion and content) Last Model Maker Relationship Specialty Start Date End Date Pcp, No PCP - General 09/14/21 Last Model Maker Relationship Specialty Start Date End Date Pcp, No PCP - General 09/14/21 Last Model Maker Relationship Specialty Start Date End Date Pcp, No PCP - General 09/14/21 Last Model Maker Relationship Specialty Start Date End Date Pcp, No PCP - General 09/14/21 11/23/21 Last Model Maker Relationship Specialty Start Date End Date Byron Hayward MD [address], [place] [id number] PCP - General Internal Medicine 11/24/21 Last Model Maker Relationship Specialty Start Date End Date Byron Hayward MD [address] [facility], [place] [id number] PCP - General Internal Medicine 11/24/21 Last Model Maker Relationship Specialty Start Date End Date Byron Hayward MD [address] [facility], [place] [id number] PCP - General Internal Medicine 11/24/21 Last Model Maker Relationship Specialty Start Date End Date Byron Hayward MD [address], [place] [id number] PCP - General Internal Medicine 11/24/21 INFORMATION SOURCE (unrecogn ized section and content) DATE CREATED AUTHOR AUTHOR'S ORGANIZ ATION 06/24/2023 [facility] FOR RECORDS PERTAINING TO PATIENTS WHO ARE OR HAVE BEEN ENROLLED IN A CHEMICAL DEPENDENCY/SUBSTANCEABUSE PROGRAM, SOME INFORMATION MAY BE OMITTED. This clinical summary was aggregated from multiple sources. Caution should be exercised in using it in the provision of clinical care. This summary normalizes information from multiple sources, and as a consequence, information in this document may materially change the coding, format and clinical context of patient data. In addition, data may be omitted in some cases. CLINICAL DECISIONS SHOULD BE BASED ON THE PRIMARY CLINICAL RECORDS. [employer] provides no warranty or guarantee of the accuracy or completeness of information in this document.
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
[2023-06-25 13:07] LABS: Internal QC Validated? YES +Cl - CLEAR BKGD; Pregnancy, Serum, hCG Quali. NEGATIVE Negative
[2023-06-25 13:13] LABS: Alcohol, Blood (Medical)-Serum < 3.0 mg/dL
--- NOTE | 2023-06-25 13:50 | ED.RN ---
[facility] CALLED, ETA 60 MIN ([phone])
--- NOTE | 2023-06-25 14:20 | ED.RN ---
Attempted to call [facility] to give report. Phone line just kept ringing.
[2023-06-25 14:24] VITALS: BP 111/70; PULSE 70; RESP 14; TEMP 36.1; O2SAT 98
== END 2023-06-25 15:10 ==
PROVIDERS: Nurse Practitioner; Emergency Provider Emergency Medicine; PCP Internal Medicine; Visit Provider Emergency Medicine
DX: F20.9 Schizophrenia, unspecified (principal); F31.9 Bipolar disorder, unspecified; Z79.899 Other long term (current) drug therapy
CPT/HCPCS: 80048; 80307; 80320; 84703; 85025; 99283; G0480